=== PATIENT | male | born 1950 | race Caucasian/White ===

== ENCOUNTER 2017-06-08 09:49 | Emergency (ER) | payer MEDICARE, OTHER, SELFPAY ==
[2017-06-08 10:01] VITALS: BP 132/81; PULSE 86; RESP 20; TEMP 36.4; O2SAT 97; BMI 41.8
--- NOTE | 2017-06-08 10:09 | HMH.EDUTC ---
[facility] [place] Clinical Impression: Upper respiratory virus Disposition: Home, Self-Care Condition on Discharge: Good Instructions: DI for Viral Upper Respiratory Infection -- Adult Additional Instructions: * No sign of bacterial infection. Likely viral. Virus can take 7-14 days to run their course * Monitor Temp. Fever would not be expected. Follow up if occurs. * Encourage fluids, water, gatorade, powerade, pedialyte if infant/toddler/child * warm salt water gargles * warm fluids * sore throat lozenges * sleep elevated * humidifier/vaporizer * Bromfed may cause drowsiness. Know how it effects you (or your child) before driving, caring for small children, or sending your child to school. No other antihistamines/allergy medications while taking bromfed. Keep an eye on your blood pressure and if becomes elevated, stop medication and follow up. Prescriptions: Brompheniramine/Pseudoephed/Dm [Bromfed DM Cough Syrup 5mL] 10 ml PO QID PRN #240 ml PRN Reason: Cough Referrals: Provider,Referral, MD [Primary Care Provider] - (Follow up with primary care or if closed, [facility], IMMEDIATELY for new or worsening symptoms OR no noticeable improvement over the next 72 hours. 911 for difficulty breathing or swallowing. ) Time of Disposition: 10:32 Medical Decision Making Vital Signs: 06/08/17 10:01 Temperature 97.5 F L Temperature Source Temporal Artery Scan Pulse Rate [Right Radial] 86 Respiratory Rate 20 Blood Pressure [Right Arm] 132/81 Blood Pressure Mean [Right Arm] 98 02 Sat by Pulse Oximetry 97 Oxygen Delivery Method Room Air - Lab Data Lab results reviewed: Yes: I reviewed the patient's lab results. Lab Results 06/08/17 10:14: Influenza Type A Ag Negative, Influenza Type B Ag Negative - Aroldo Inquiry Pt receiving controlled substance: No [facility] [place] - General Stated complaint: cold Time Seen by Provider: 06/08/17 09:55 Mode of Arrival: Family Vehicle Source of Information: Patient Limitations: No Limitations Description of Symptoms (Recalled from Triage Doc. by RN): pt c/o cough and chest congestion for 3 days. HEENT Symptoms (Recalled from RN notes): No Resp Symptoms (Recalled from RN notes): Yes (cough chest congestion) Skin Symptoms (Recalled from RN notes): No MS Symptoms (Recalled from RN notes): No Functional Status (Recalled from RN notes): na - History of Present Illness Provider Complaint: c/o cough. Wants to rule out flu due to grandchild. 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 Started Saturday, 5 days ago with scratchy throat. Thought he might be trying to get right ear infection but that resolved too . Moved to tickle in throat 2 days ago that is causing cough. Denies chest congestion, SOA. reports wheezing that started last night but then once discussed, he said wasn't actually wheezing and more just a deep cough occasionally. not very often at all. nothing like a chest cold or pneumonia. I have had those before and this is all up here, not my chest . Declined CXR when suggested. Primarily here to rule out flu. OTC cough syrup hasn't helped. Home meds amlodipine, benazepril, trim/hctz, allopurinol, simvastatin, ASA, K+ - Related Data Previous Rx's Medication Instructions Recorded Brompheniramine/Pseudoephed/Dm 10 ml PO QID PRN #240 ml 06/08/17 [Bromfed DM Cough Syrup 5mL] Allergies Allergy/AdvReac Type Severity Reaction Status Date / Time Penicillins Allergy Verified 06/08/17 10:05 PCN (PENICILLIN) AdvReac Unknown [id number] Uncoded 03/26/17 15:03 OUT 40 YRS AGO. WAS SNEEZING.-ANCEF OK - Worker's Comp Is this a Worker's Comp case?: No [facility] History I have reviewed the patient's past medical history: Yes Medical History: Reports:: Hypertension Denies:: Asthma, Cancer, Chronic Obstructive Pulmonary Disease (COPD), Diabetes Mellitus Type 1, Diabetes Mellitus Type 2, MRSA Comme
--- NOTE | 2017-06-08 10:13 | ED_ITS ---
[facility] [place]ression: Upper respiratory virus Disposition: Home, Self-Care Condition on Discharge: Good Instructions: DI for Viral Upper Respiratory Infection -- Adult Additional Instructions: * No sign of bacterial infection. Likely viral. Virus can take 7-14 days to run their course * Monitor Temp. Fever would not be expected. Follow up if occurs. * Encourage fluids, water, gatorade, powerade, pedialyte if infant/toddler/ child * warm salt water gargles * warm fluids * sore throat lozenges * sleep elevated * humidifier/vaporizer * Bromfed may cause drowsiness. Know how it effects you (or your child) before driving, caring for small children, or sending your child to school. No other antihistamines/allergy medications while taking bromfed. Keep an eye on your blood pressure and if becomes elevated, stop medication and follow up. Prescriptions: Brompheniramine/Pseudoephed/Dm [Bromfed DM Cough Syrup 5mL] 10 ml PO QID PRN # 240 ml PRN Reason: Cough Referrals: Provider,Referral, MD [Primary Care Provider] - (Follow up with primary care or if closed, [facility], IMMEDIATELY for new or worsening symptoms OR no noticeable improvement over the next 72 hours. 911 for difficulty breathing or swallowing. ) Time of Disposition: 10:32 Medical Decision Making Vital Signs: 06/08/17 10:01 Temperature 97.5 F L Temperature Source Temporal Artery Scan Pulse Rate [Right Radial] 86 Respiratory Rate 20 Blood Pressure [Right Arm] 132/81 Blood Pressure Mean [Right Arm] 98 02 Sat by Pulse Oximetry 97 Oxygen Delivery Method Room Air - Lab Data Lab results reviewed: Yes: I reviewed the patient's lab results. Lab Results 06/08/17 10:14: Influenza Type A Ag Negative, Influenza Type B Ag Negative - Aroldo Inquiry Pt receiving controlled substance: No [facility] [place] - General Stated complaint: cold Time Seen by Provider: 06/08/17 09:55 Mode of Arrival: Family Vehicle Source of Information: Patient Limitations: No Limitations Description of Symptoms (Recalled from Triage Doc. by RN): pt c/o cough and chest congestion for 3 days. HEENT Symptoms (Recalled from RN notes): No Resp Symptoms (Recalled from RN notes): Yes (cough chest congestion) Skin Symptoms (Recalled from RN notes): No MS Symptoms (Recalled from RN notes): No Functional Status (Recalled from RN notes): na - History of Present Illness Provider Complaint: c/o cough. Wants to rule out flu due to grandchild. 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 Started Saturday, 5 days ago with scratchy throat. Thought he might be trying to get right ear infection but that resolved too . Moved to tickle in throat 2 days ago that is causing cough. Denies chest congestion, SOA. reports wheezing that started last night but then once discussed, he said wasn't actually wheezing and more just a deep cough occasionally. not very often at all. nothing like a chest cold or pneumonia. I have had those before and this is all up here, not my chest . Declined CXR when suggested. Primarily here to rule out flu. OTC cough syrup hasn't helped. Home meds amlodipine, benazepril, trim/hctz, allopurinol, simvastatin, ASA, K+ - Related Data Previous Rx's Medication Instructions Recorded Brompheniramine/Pseudoephed/Dm 10 ml PO QID PRN #240 ml 06/08/17 [Bromfed DM Cough Syrup 5mL] Allergies Allergy/AdvReac Type Severity R
[2017-06-08 10:20] LABS: UTC Influenza A Antigen Negative (Negative); UTC Influenza B Antigen Negative (Negative)
[2017-06-08 10:35] VITALS: BP 130/79; PULSE 84; RESP 18; TEMP 36.4; O2SAT 98
== END 2017-06-08 10:36 | disposition home or self-care (01) ==
PROVIDERS: Emergency Provider Nurse Practitioner Family
DX: J06.9 Acute upper respiratory infection, unspecified (principal); I10 Essential (primary) hypertension; Z88.0 Allergy status to penicillin; Z96.651 Presence of right artificial knee joint
CPT/HCPCS: G0463; 87804; 99202

== ENCOUNTER → 2018-11-25 15:06 | Outpatient (POV) | payer MEDICARE, OTHER, SELFPAY | PROVIDERS: Visit Provider Dermatology | DX: Z00.00 Encounter for general adult medical examination without abnormal findings (principal) ==

== ENCOUNTER → 2020-05-16 07:07 | Outpatient (CLI) | payer MEDICARE, OTHER, SELFPAY ==
[2020-05-16 08:10] LABS: Coronavirus 19 IgG Antibody Negative (Negative); Coronavirus 19 IgM Antibody Negative (Negative)
== END ==
PROVIDERS: Visit Provider Surgery
DX: Z01.812 Encounter for preprocedural laboratory examination (principal); Z20.822 Contact with and (suspected) exposure to COVID-19; Z12.11 Encounter for screening for malignant neoplasm of colon
CPT/HCPCS: 36415; 86328

== ENCOUNTER 2020-05-17 07:38 | Day surgery (SDC) | payer MEDICARE, OTHER, SELFPAY ==
[2020-05-12 13:44] VITALS: BMI 44.1
[2020-05-17 07:51] VITALS: BP 145/75; PULSE 88; RESP 16; TEMP 36.3; O2SAT 100
[2020-05-17 08:11] VITALS: O2SAT 97
--- NOTE | 2020-05-17 08:39 | HMH.ANESCL ---
[facility] Anesthesia Checklist - Patient Identification Patient Identification: Arm Band - Structural Data Admitted From: Home Planned Operative Procedure/s: colonoscopy Consent for Planned Operative Procedure(s) Verified: Yes Verified Documents: Surgical Consent, History and Physical - NPO Status Verified Time NPO: 00:00 - Additional verifications Anesthesia Reactions: No - Airway Assessment C-Spine Mobility Assessed: Yes (mp3) TMJ Mobility Assessed: Yes Dentition: Good Dentition - Neurological Assessment Level of Consciousness: Awake, Alert - Anesthesia Plan Anesthesia Risk discussed: Yes Anesthesia Plan: Verified ASA Class: III Anesthesia Type: MAC [facility] History I have reviewed the patient's past medical history: Yes Medical History: Reports:: Cancer (basal cell scalp), Hyperlipidemia, Hypertension Denies:: Asthma, Chronic Obstructive Pulmonary Disease (COPD), Diabetes Mellitus Type 1, Diabetes Mellitus Type 2, Internal Pacemaker, Lung Disease, MRSA, Seizures *Have you ever received a pneumonia vaccine?: Yes *Have you received a flu vaccine this season?: Yes Other Medical History: Reports: Other (christiano-cpap hs) Anesthesia experience/problems:: nac Other Surgeries: Yes: Colonoscopy, Other. No: Pacemaker Amputation: No - *Social History Last grade of school completed: 11th or 12th Smoking Status: Never smoker Alcohol Intake: never Substance Use Type: denies use *Occupational Status:: retired Housing: house Household Members: spouse *Travel in the last 8 weeks: None Family Hx:: Cancer, Heart Attack
[2020-05-17 08:55] VITALS: BP 92/52; PULSE 64; RESP 18; TEMP 36.1; O2SAT 90
--- NOTE | 2020-05-17 08:57 | HMH.SCOPE ---
- Procedure: Date: 05/17/20 Patient Date of :: 1950 Procedure Performed:: Total colonoscopy with polypectomy Indications:: Patient is a 70-year-old male with BMI of 44 whose primary care provider is Dr. Dequan Roe. He presents to schedule follow-up colonoscopy. He has undergone several colonoscopies in the past. He had colonoscopy in 2004 with numerous tubular adenomas removed, 2006 which was unremarkable, 2011 with 5 tubular adenomas removed, February 2014 at which time he had 12 tubular adenomas and in November 2017 at which time he had 8 tubular adenomas. I recommended a 2-year follow-up. He is doing well without any complaints. Performing Provider:: Saul Tuttle MD Referring Provider:: Dequan Roe MD Sedation:: MAC sedation Procedure:: Patient was taken to endoscopy procedure room. He was positioned in the lateral decubitus position. Adequate intravenous sedation was achieved with anesthesia titration of propofol. Digital examination was performed which was unremarkable. Variable stiffness Olympus colonoscope was inserted via the anus. It was advanced to the cecum with some minor difficulty due to floppiness of the sigmoid colon. Ileocecal valve and appendiceal orifice were identified. He did have a fair preparation with particulate liquid stool throughout the colon and a significant amount of undigested vegetable matter (peas). Thorough irrigation and suctioning was performed. Colonoscope was withdrawn through the colon with careful surveillance. There was a small adenomatous appearing polyp in the ascending colon removed with cold cutting snare. There is a small polyp in the transverse colon removed with cold snare. There is possible subtle polyp irregularity in the descending colon which was biopsied. There was a similar possible polyp characterizes a subtle irregularity in the sigmoid colon which was biopsied. Retroflexion within the rectum revealed no evidence of any pathologic internal hemorrhoids. Colonoscope was withdrawn. Findings:: Fair preparation Undigested vegetable matter Several small polyps as noted above Recommendations:: Pending the pathology and in light of suboptimal bowel preparation recommend repeat colonoscopy 2 to 3 years Complications:: None Estimated blood obtained (mL): 2
[2020-05-17 09:05] VITALS: BP 110/63; PULSE 64; RESP 18; O2SAT 91
[2020-05-17 09:15] VITALS: BP 126/72; PULSE 63; RESP 18; O2SAT 94
[2020-05-17 09:25] VITALS: BP 131/97; PULSE 62; RESP 18; O2SAT 97
== END 2020-05-17 09:25 | disposition home or self-care (01) ==
LOC: OUTP 07:40
PROVIDERS: PCP Internal Medicine; Visit Provider Surgery
PROC: 0DJD8ZZ Inspection of Lower Intestinal Tract, Via Natural or Artificial Opening Endoscopic (ICD-10-PCS; CPT 45380; principal; 2020-05-17 08:30)
DX: Z12.11 Encounter for screening for malignant neoplasm of colon (principal); K63.89 Other specified diseases of intestine; K63.5 Polyp of colon; Z86.010 Personal history of colon polyps; Z85.828 Personal history of other malignant neoplasm of skin; E78.5 Hyperlipidemia, unspecified; I10 Essential (primary) hypertension; G47.33 Obstructive sleep apnea (adult) (pediatric); Z82.3 Family history of stroke; Z80.9 Family history of malignant neoplasm, unspecified; Z79.82 Long term (current) use of aspirin; Z79.899 Other long term (current) drug therapy
CPT/HCPCS: 45380; 45385; 88305

== ENCOUNTER → 2020-10-24 10:39 | Outpatient (CLI) | payer MEDICARE, OTHER, SELFPAY | PROVIDERS: PCP Internal Medicine; Visit Provider Internal Medicine | DX: Z20.822 Contact with and (suspected) exposure to COVID-19 (principal); U07.1 COVID-19 | CPT/HCPCS: U0003 ==

== ENCOUNTER → 2021-06-09 13:26 | Outpatient (CLI) | payer MEDICARE, OTHER, SELFPAY ==
[2021-06-09 15:19] LABS: Basophils % 0.3 % (0.1-2.0); Eosinophils # 0.1 K/mm3 (0.0-0.4); Eosinophils % 1.2 % (0.1-12.0); Hematocrit 44.8 % (42.0-52.0); Hemoglobin 15.2 g/dL (14.1-18.0); Lymphocytes # 1.7 K/mm3 (0.7-4.5); Lymphocytes % 31.6 % (10-50); Mean Corpuscular HGB Conc 33.9 g/dL (31.8-35.4); Mean Corpuscular Hemoglobin 30.2 pg (27.0-31.2); Mean Corpuscular Volume 89.1 fl (80-94); Mean Platelet Volume 8.1 fl (7.4-10.4); Monocytes # 0.5 K/mm3 (0.1-1.0); Monocytes % 8.4 % (1.7-9.3); Neutrophils # 3.1 K/mm3 (1.8-7.8); Neutrophils % 58.4 % (37.0-80.0); Platelet Count 243 K/mm3 (142-424); Red Blood Count 5.02 M/mm3 (4.60-6.20); White Blood Count 5.3 K/mm3 (4.8-10.8)
[2021-06-09 15:32] LABS: Chloride 101 mmol/L (98-107); Potassium 3.9 mmoL/L (3.5-5.1); Sodium 137 mmol/L (136-145)
[2021-06-09 15:35] LABS: Alanine Aminotransferase 35 U/L (12-78); Albumin Level 4.2 g/dl (3.5-5.0); Albumin/Globulin Ratio 1.6 (1.1-1.8); Alkaline Phosphatase 96 U/L (38-126); Anion Gap 14.9 mEq/L (5-15); Aspartate Amino Transferase 40 U/L (17-59); Bilirubin,Total 1.2 mg/dl (0.2-1.3); Blood Urea Nitrogen 20 mg/dl (9-20); Carbon Dioxide 25 mmol/L (22.0-30.0); Cholesterol 142 mg/dl (140-200); Estimated Glomerular Filt Rate 66 ml/min (>60); GFR (African American) 80 ML/MIN (>60); Globulin 2.6 g/dL (1.3-3.2); Total Protein,Serum 6.8 g/dl (6.3-8.2); Triglycerides 91 mg/dl (30-150); VLDL Cholesterol 18 mg/dL (0-40)
[2021-06-09 15:36] LABS: Calcium 8.3 mg/dl (8.4-10.2); Chol/HDL Ratio 3.7 (1-3.5); Glucose 83 mg/dl (74-100); HDL Cholesterol 38 mg/dl (40-60)
[2021-06-09 15:47] LABS: Direct LDL Cholesterol 81.27 mg/dL (100-129)
[2021-06-09 16:32] LABS: Uric Acid 6.9 mg/dl (3.5-8.5)
[2021-06-09 17:04] LABS: Prostate Specific Ag Screen 2.6 ng/ml (0.0-4.0)
== END ==
PROVIDERS: PCP Internal Medicine; Visit Provider Internal Medicine
DX: E11.9 Type 2 diabetes mellitus without complications (principal); I10 Essential (primary) hypertension; I87.2 Venous insufficiency (chronic) (peripheral); E78.5 Hyperlipidemia, unspecified; M10.9 Gout, unspecified; Z12.5 Encounter for screening for malignant neoplasm of prostate
CPT/HCPCS: 80053; 80061; 84550; 85025; G0103

== ENCOUNTER → 2021-07-06 10:18 | Outpatient (CLI) | payer MEDICARE, OTHER, SELFPAY ==
--- NOTE | 2021-07-06 10:18 | MR_ITS ---
FINAL REPORT CLINICAL HISTORY: growth on inner thigh. growth on medial aspect of lt thigh xyrs. knee replacement. growth getting bigger. 26ml prohance given. FINDINGS: Multiplanar MR imaging of the left femur was performed with and without contrast. No fracture is identified. The musculature is intact. There are several enlarged left inguinal nodes measuring up to 25 mm which are nonspecific, favor reactive. There are postoperative changes from left knee arthroplasty. There is a presumed large subchondral cyst in the superior left acetabulum. Small joint effusion is identified. A marker was placed at the proximal medial aspect of the left thigh. At the level of the marker is superficial increased T2 signal which shows contrast enhancement and extends to the skin surface, favor edema/inflammation. Small bilateral scrotal hydroceles are identified. IMPRESSION: Findings favored to represent edema/inflammation at the area of interest. Small bilateral scrotal hydroceles. Reviewed, Interpreted and Dictated by Saul Dawson III, MD Transcribed by Eula Kasper Authenticated by Saul Dawson III, MD on 07/06/2021 01:48:32 PM [facility]
== END ==
PROVIDERS: PCP Internal Medicine; Visit Provider Surgery
DX: D17.9 Benign lipomatous neoplasm, unspecified (principal)
CPT/HCPCS: 73720; A9576

== ENCOUNTER → 2021-12-15 09:23 | Outpatient (CLI) | payer MEDICARE, OTHER, SELFPAY ==
[2021-12-15 17:13] LABS: Alanine Aminotransferase 38 U/L (12-78); Albumin Level 3.7 g/dl (3.5-5.0); Albumin/Globulin Ratio 1.5 (1.1-1.8); Alkaline Phosphatase 122 U/L (38-126); Anion Gap 13.1 mEq/L (5-15); Aspartate Amino Transferase 37 U/L (17-59); Bilirubin,Total 0.7 mg/dl (0.2-1.3); Blood Urea Nitrogen 17 mg/dl (9-20); Calcium 8.2 mg/dl (8.4-10.2); Carbon Dioxide 25 mmol/L (22.0-30.0); Chloride 105 mmol/L (98-107); Chol/HDL Ratio 3.5 (1-3.5); Cholesterol 132 mg/dl (140-200); Estimated Glomerular Filt Rate 66 ml/min (>60); GFR (African American) 80 ML/MIN (>60); Globulin 2.5 g/dL (1.3-3.2); Glucose 145 mg/dl (74-100); HDL Cholesterol 38 mg/dl (40-60); Potassium 4.1 mmoL/L (3.5-5.1); Sodium 139 mmol/L (136-145); Total Protein,Serum 6.2 g/dl (6.3-8.2); Triglycerides 116 mg/dl (30-150); Uric Acid 6.4 mg/dl (3.5-8.5); VLDL Cholesterol 23 mg/dL (0-40)
[2021-12-15 17:24] LABS: Direct LDL Cholesterol 72.54 mg/dL (100-129)
[2021-12-15 20:11] LABS: Hemoglobin A1C 7.3 % (4.0-6.0)
== END ==
PROVIDERS: PCP Internal Medicine; Visit Provider Internal Medicine
DX: I10 Essential (primary) hypertension (principal); M10.9 Gout, unspecified; E78.5 Hyperlipidemia, unspecified; I87.2 Venous insufficiency (chronic) (peripheral); Z79.899 Other long term (current) drug therapy
CPT/HCPCS: 80053; 80061; 83036; 84550

== ENCOUNTER → 2022-06-13 12:29 | Outpatient (CLI) | payer MEDICARE, OTHER, SELFPAY ==
[2022-06-13 13:22] LABS: Basophils % 0.5 % (0.1-2.0); Eosinophils # 0.1 K/mm3 (0.0-0.4); Hematocrit 41.1 % (42.0-52.0); Hemoglobin 14.2 g/dL (14.1-18.0); Lymphocytes # 1.4 K/mm3 (0.7-4.5); Lymphocytes % 22.8 % (10-50); Mean Corpuscular HGB Conc 34.6 g/dL (31.8-35.4); Mean Corpuscular Volume 89.6 fl (80-94); Mean Platelet Volume 9.1 fl (7.4-10.4); Monocytes # 0.5 K/mm3 (0.1-1.0); Monocytes % 7.5 % (1.7-9.3); Neutrophils % 67.2 % (37.0-80.0); Platelet Count 240 K/mm3 (142-424); Red Blood Count 4.59 M/mm3 (4.60-6.20)
[2022-06-13 13:37] LABS: Creatinine,Urine Random 35 mg/dL (Not Estab.)
[2022-06-13 13:46] LABS: Microalbumin/Creatinine Ratio 42.8
[2022-06-13 13:55] LABS: Chloride 103 mmol/L (98-107); Sodium 137 mmol/L (136-145)
[2022-06-13 13:57] LABS: Blood Urea Nitrogen 18 mg/dl (9-20); Estimated Glomerular Filt Rate 73 ml/min (>60); GFR (African American) 89 ML/MIN (>60)
[2022-06-13 13:58] LABS: Albumin Level 3.8 g/dl (3.5-5.0); Albumin/Globulin Ratio 1.4 (1.1-1.8); Alkaline Phosphatase 109 U/L (38-126); Bilirubin,Total 1.1 mg/dl (0.2-1.3); Calcium 8.2 mg/dl (8.4-10.2); Cholesterol 125 mg/dl (140-200); Globulin 2.7 g/dL (1.3-3.2); Glucose 192 mg/dl (74-100); Total Protein,Serum 6.5 g/dl (6.3-8.2); Triglycerides 141 mg/dl (30-150); VLDL Cholesterol 28 mg/dL (0-40)
[2022-06-13 13:59] LABS: Chol/HDL Ratio 3.5 (1-3.5); HDL Cholesterol 36 mg/dl (40-60)
[2022-06-13 14:09] LABS: Direct LDL Cholesterol 73.94 mg/dL (100-129)
[2022-06-13 16:42] LABS: Alanine Aminotransferase 39 U/L (12-78); Aspartate Amino Transferase 39 U/L (17-59); Carbon Dioxide 24 mmol/L (22.0-30.0)
[2022-06-13 17:14] LABS: Prostate Specific Ag Screen 5.1 ng/ml (0.0-4.0)
[2022-06-13 21:44] LABS: Hemoglobin A1C 8.9 % (4.0-6.0)
== END ==
PROVIDERS: PCP Internal Medicine; Visit Provider Internal Medicine
DX: E11.9 Type 2 diabetes mellitus without complications (principal); I10 Essential (primary) hypertension; I87.2 Venous insufficiency (chronic) (peripheral); E78.5 Hyperlipidemia, unspecified; Z12.5 Encounter for screening for malignant neoplasm of prostate; G47.33 Obstructive sleep apnea (adult) (pediatric)
CPT/HCPCS: 80053; 80061; 82043; 82570; 83036; 85025; G0103

== ENCOUNTER → 2022-12-14 12:56 | Outpatient (CLI) | payer MEDICARE, OTHER, SELFPAY ==
[2022-12-14 16:29] LABS: Prostate Specific Ag Screen 2.7 ng/ml (0.0-4.0)
== END ==
PROVIDERS: PCP Internal Medicine; Visit Provider Internal Medicine
DX: E11.9 Type 2 diabetes mellitus without complications (principal); Z12.5 Encounter for screening for malignant neoplasm of prostate; I10 Essential (primary) hypertension; M10.9 Gout, unspecified; R97.20 Elevated prostate specific antigen [PSA]; I87.2 Venous insufficiency (chronic) (peripheral)
CPT/HCPCS: 83036; G0103

== ENCOUNTER → 2023-01-16 08:15 | Outpatient (CLI) | payer MEDICARE, OTHER, SELFPAY ==
--- NOTE | 2023-01-16 08:27 | MR_ITS ---
APPROVED REPORT Area Forester: CLINICAL INDICATION TECHNIQUE Image Acquisition: Cardiac magnetic resonance (CMR) was performed on Siemens MRI 1.5T scanner. A set of three-plane, low-resolution, large [id number] localizers were initially acquired. Then axial, coronal, and sagittal TrueFISP, and axial HASTE images were obtained. These were followed by gated TrueFISP breathold cinematic sequences obtained in the short axis with 8 mm slices and 2 mm gaps, 2-chamber (vertical long axis), 3-chamber, 4-chamber (horizontal long axis). A bolus of contrast was injected intravenously with first-pass sequences obtained in the short axis and four-chamber planes. After approximately 10 minutes, a TI agronomy specialist sequence was performed to determine the optimal TI time. Using the optimized TI time, delayed contrast enhancement segmented inversion???recovery TurboFLASH sequences were obtained in the short axis, 2-chamber, 3-chamber, and 4-chamber projections. 2D-velocity phase mapping was performed. Functional parameters were calculated by offline analysis on an independent workstation ([employer], [employer]). Contrast: ProHance??? (Gadoteridol) FINDINGS See below for the full quantitative analysis report. MORPHOLOGY AND FUNCTION Left ventricle: The left ventricle is normal in size. The indexed left ventricular end-diastolic volume (LVEDVi) is 68.2 ml/m2 (reference range 57-105 ml/m2 in males, 56-96 ml/m2 in females). Low-normal left ventricular systolic function is present. There is normal wall thickness. There are no regional wall motion abnormalities noted. LVEF is calculated at 50.5% (reference range 57-77%). Right ventricle: The right ventricle is normal in size. The indexed right ventricular end-diastolic volume (RVEDVi) is 95.5 ml/m2 (reference range 61-121 ml/m2 in males, 48-112 ml/m2 in females). Moderately reduced right ventricular systolic function is present. RVEF is calculated at 35.3 % (reference range 52-72% in males, 51-71% in females). Atria: The left atrium is normal in size. The maximum indexed left atrial volume is 29.8 ml/m2 (reference range 26-52 ml/m2 in males, 27-53 ml/m2 in females). The right atrium is normal in size. The maximum indexed right atrial volume is 42.7 ml/m2 (reference range 18-90 ml/m2). Aorta: The diameter of the aortic annulus is normal, measuring 28 mm (coronal view reference range 21-30 mm in males, 19-27 mm in females). The diameter of the aortic sinus is mildly increased, measuring 44 mm (coronal view reference range 25-42 mm in males, 24-36 mm in females). The diameter of the sinotubular junction is moderately increased, measuring 37 mm (coronal view reference range 18-32 mm in males, 18-28 mm in females). The diameter of the ascending aorta is mildly increased, measuring 40 mm. Main pulmonary artery: The main pulmonary artery diameter is normal. Pericardium: The pericardial thickness is normal. The pericardial thickness measures 1.3 cm (reference range < 4 mm). There is no pericardial effusion. VALVES The valvular morphologies in the visualized sequences appear normal. There is no significant valvular stenosis or regurgitation of the mitral, aortic, tricuspid, or pulmonic valve. Systolic anterior motion of the mitral valve is not visualized. Ratio of pulmonary to systemic flow, Qp:Qs ratio cannot be quantified due to absence of pulmonary flow assessment. TISSUE CHARACTERIZATION Resting Perfusion: Normal myocardial blood flow at rest. No evidence of resting hypoperfusion. Myocardial Fibrosis and/or edema: There is inadequate myocardial nulling during study processing to evaluate for late gadolinium enhancement. Further assessment cannot be made. OTHER No other significant findings ar
== END ==
PROVIDERS: PCP Internal Medicine
DX: J06.9 Acute upper respiratory infection, unspecified (principal)

== ENCOUNTER 2023-06-14 14:36 | Outpatient (CLI) | payer MEDICARE, OTHER, SELFPAY ==
[2023-06-14 15:13] LABS: Basophils % 0.5 % (0.1-2.0); Eosinophils # 0.1 K/mm3 (0.0-0.4); Hematocrit 45.3 % (42.0-52.0); Hemoglobin 14.8 g/dL (14.1-18.0); Lymphocytes # 1.5 K/mm3 (0.7-4.5); Lymphocytes % 30.3 % (10-50); Mean Corpuscular HGB Conc 32.7 g/dL (31.8-35.4); Mean Corpuscular Hemoglobin 31.9 pg (27.0-31.2); Mean Corpuscular Volume 97.4 fl (80-94); Monocytes # 0.5 K/mm3 (0.1-1.0); Monocytes % 10.1 % (1.7-9.3); Neutrophils # 2.8 K/mm3 (1.8-7.8); Neutrophils % 57.1 % (37.0-80.0); Platelet Count 181 K/mm3 (142-424); Red Blood Count 4.65 M/mm3 (4.60-6.20); Red Cell Distribution Width 15.7 % (11.5-17.5); White Blood Count 4.9 K/mm3 (4.8-10.8)
[2023-06-14 15:44] LABS: Creatinine,Urine Random 27 mg/dL (Not Estab.); Microalbumin < 6.000 mg/L (0-16.7)
[2023-06-14 16:02] LABS: Alanine Aminotransferase 36 U/L (12-78); Albumin/Globulin Ratio 1.7 (1.1-1.8); Alkaline Phosphatase 113 U/L (38-126); Anion Gap 11.6 mEq/L (5-15); Aspartate Amino Transferase 40 U/L (17-59); Bilirubin,Total 1.1 mg/dl (0.2-1.3); Blood Urea Nitrogen 18 mg/dl (9-20); Calcium 8.5 mg/dl (8.4-10.2); Carbon Dioxide 26 mmol/L (22.0-30.0); Chloride 105 mmol/L (98-107); Chol/HDL Ratio 4.1 (1-3.5); Cholesterol 131 mg/dl (140-200); Estimated Glomerular Filt Rate 73 ml/min (>60); GFR (African American) 89 ML/MIN (>60); Globulin 2.4 g/dL (1.3-3.2); Glucose 135 mg/dl (74-100); HDL Cholesterol 32 mg/dl (40-60); Potassium 3.6 mmoL/L (3.5-5.1); Sodium 139 mmol/L (136-145); Total Protein,Serum 6.4 g/dl (6.3-8.2); Triglycerides 127 mg/dl (30-150); Uric Acid 5.9 mg/dl (3.5-8.5); VLDL Cholesterol 25 mg/dL (0-40)
[2023-06-14 16:13] LABS: Direct LDL Cholesterol 73.51 mg/dL (100-129)
[2023-06-14 16:17] LABS: Hemoglobin A1C 8.4 % (4.0-6.0)
== END 2023-06-14 23:59 ==
LOC: LAB.DROPOF 14:37
PROVIDERS: PCP Internal Medicine; Visit Provider Internal Medicine
DX: E11.9 Type 2 diabetes mellitus without complications (principal); I10 Essential (primary) hypertension; M10.9 Gout, unspecified; E78.5 Hyperlipidemia, unspecified; G47.33 Obstructive sleep apnea (adult) (pediatric); N40.1 Benign prostatic hyperplasia with lower urinary tract symptoms; I87.2 Venous insufficiency (chronic) (peripheral)
CPT/HCPCS: 80053; 80061; 82043; 82570; 83036; 84550; 85025

== ENCOUNTER 2023-06-28 07:22 | Day surgery (SDC) | payer MEDICARE, OTHER, SELFPAY ==
[2023-06-26 13:47] VITALS: BMI 43.9
[2023-06-28 07:43] VITALS: BP 127/69; PULSE 80; RESP 18; TEMP 36.1; O2SAT 94
[2023-06-28] MEDS: LACTATED RINGERS 1000ML 1,000 ML 25 ML IV (07:50)
--- NOTE | 2023-06-28 08:07 | HMH.SCOPE ---
Procedure: Date: 06/28/23 Patient Date of :: 1950 Procedure Performed:: Total colonoscopy to terminal ileum with multiple polypectomy Indications:: Patient is a 73-year-old male. He underwent colonoscopy in 2004 and had numerous tubular adenomas. He subsequently had colonoscopy in 2006 and then in 2011 at which time he had 5 tubular adenomas. Repeat colonoscopy 2 years later in 2013 revealed 12 tubular adenomas. Colonoscopy 2018 revealed 8 tubular adenomas. Last colonoscopy performed on 05/17/2020 revealed a couple of tubular adenomas and a suboptimal preparation. Performing Provider:: Saul Tuttle MD Referring Provider:: Dequan Roe MD Sedation:: MAC sedation Procedure:: Patient history was obtained and appropriate physical examination was performed. Patient's medications and allergies were reviewed. Informed consent was obtained after explaining the benefits, alternatives, and risks of the procedure including, but not limited to, bleeding, perforation, missed lesions, and adverse reaction to anesthesia medications. Patient was transported to endoscopy procedure room. Patient was connected to monitoring devices. Throughout the procedure the patient's blood pressure, pulse, and oxygen saturations were monitored continuously. Patient identification and planned procedure were verified by the staff. Patient was positioned in lateral decubitus position. Digital anorectal exam was performed. Variable stiffness Olympus colonoscope was inserted and advanced under direct visualization to the cecum. Adequacy of the colonic preparation was noted. The colonoscope was advanced a short distance into the terminal ileum. The colonoscope was then slowly withdrawn while carefully examining the color, texture, anatomy, and integrity of the mucosoa circumferentially. Within the rectum retroflexion was performed. Colonoscope was then withdrawn. . Colonoscope was advanced to the terminal ileum. There was particulate liquid stool throughout the colon and high-volume irrigation and suctioning was performed. In the ascending colon there was a tiny diminutive polyp removed with biopsy forceps. In the proximal transverse colon there were a couple of small diminutive polyps removed with biopsy forceps. There was some minor oozing from the polypectomy site and Hemoclip was deployed for assurance of hemostasis. In the proximal sigmoid colon there was somewhat of a hyperplastic appearing polyp removed with cold snare. He had some mild sigmoid diverticulosis. At the rectosigmoid region there was an adenomatous appearing polyp removed with cold snare. . Findings:: Polyps as noted above Sigmoid diverticulosis Recommendations:: Repeat colonoscopy pending pathology. Likely 3 years given prior history and polyps Complications:: None immediately apparent Estimated blood obtained (mL): 3 Colonoscopy Component Colonoscopy Component Was a colonoscopy performed during today's procedure?: Yes Recommended follow up colonoscopy of at least 10 years?: No If no, follow up colonoscopy recommended in ___ years?: 3 Reason for not recommending >/= 10 yr follow-up interval?: See above
--- NOTE | 2023-06-28 08:15 | P.PNANES_ITS ---
[facility] Disclaimer: The information contained in this section may have been updated after the patient was seen, as this information can be updated by other users. Medical History Sleep apnea History of COVID-19 Hyperlipidemia Hypertension Skin cancer Surgical History Hx of total knee replacement Family History Other Cancer Heart attack Social History (Updated 06/28/23 @ 07:49 by Juliane Coffman RN) Smoking Status: Never smoker alcohol intake: never substance use type: denies use current occupational status: retired Travel in the last 8 weeks: None household members: spouse housing: house caffeine: Yes [facility] Anesthesia Checklist Patient Identification Patient Identification: Arm Band Structural Data Admitted From: Home Planned Operative Procedure/s: Colonoscopy Consent for Planned Operative Procedure(s) Verified: Yes Verified Documents: Surgical Consent and History and Physical NPO Status Verified Time NPO: 00:00 Additional verifications Anesthesia Reactions: No Airway Assessment Mallampati Score:: Class III C-Spine Mobility Assessed: Yes TMJ Mobility Assessed: Yes Dentition: Good Dentition Neurological Assessment Level of Consciousness: Awake and Alert Anesthesia Plan Anesthesia Risk discussed: Yes Anesthesia Plan: Verified ASA Class: III Anesthesia Type: MAC
[2023-06-28 08:21] VITALS: O2SAT 979
[2023-06-28 08:57] VITALS: BP 87/54; PULSE 63; RESP 17; TEMP 36.9; O2SAT 90
[2023-06-28 09:07] VITALS: BP 92/55; PULSE 60; RESP 17; O2SAT 94
[2023-06-28 09:17] VITALS: BP 91/53; PULSE 69; RESP 18; O2SAT 94
[2023-06-28 09:28] VITALS: BP 102/59; PULSE 68; RESP 18; O2SAT 95
== END 2023-06-28 09:29 | disposition home or self-care (01) ==
PROVIDERS: PCP Internal Medicine; Visit Provider Surgery
PROC: 0DJD8ZZ Inspection of Lower Intestinal Tract, Via Natural or Artificial Opening Endoscopic (ICD-10-PCS; CPT 45385; principal; 2023-06-28 08:30)
DX: Z12.11 Encounter for screening for malignant neoplasm of colon (principal); Z86.010 Personal history of colon polyps; K57.92 Diverticulitis of intestine, part unspecified, without perforation or abscess without bleeding; D12.2 Benign neoplasm of ascending colon; D12.3 Benign neoplasm of transverse colon; K63.5 Polyp of colon; D12.5 Benign neoplasm of sigmoid colon
CPT/HCPCS: 45380; 45385; 88305; J2704

== ENCOUNTER 2023-12-18 09:20 | Outpatient (CLI) | payer MEDICARE, OTHER, SELFPAY ==
[2023-12-18 17:39] LABS: Creatinine,Urine Random 31 mg/dL (Not Estab.); Microalbumin < 6.000 mg/L (0-16.7)
[2023-12-18 17:52] LABS: Hemoglobin A1C 6.5 % (4.0-6.0)
[2023-12-18 18:18] LABS: Alanine Aminotransferase 31 U/L (12-78); Albumin Level 3.7 g/dl (3.5-5.0); Albumin/Globulin Ratio 1.2 (1.1-1.8); Alkaline Phosphatase 88 U/L (38-126); Aspartate Amino Transferase 36 U/L (17-59); Blood Urea Nitrogen 23 mg/dl (9-20); Calcium 8.4 mg/dl (8.4-10.2); Carbon Dioxide 24 mmol/L (22.0-30.0); Chloride 105 mmol/L (98-107); Chol/HDL Ratio 3.9 (1-3.5); Cholesterol 128 mg/dl (140-200); Estimated Glomerular Filt Rate 83 ml/min (>60); GFR (African American) 100 ML/MIN (>60); Glucose 122 mg/dl (74-100); HDL Cholesterol 33 mg/dl (40-60); Sodium 139 mmol/L (136-145); Total Protein,Serum 6.7 g/dl (6.3-8.2); Triglycerides 111 mg/dl (30-150); Uric Acid 6.2 mg/dl (3.5-8.5); VLDL Cholesterol 22 mg/dL (0-40)
[2023-12-18 18:29] LABS: Direct LDL Cholesterol 70.97 mg/dL (100-129)
[2023-12-18 18:48] LABS: Prostate Specific Ag Screen 4.1 ng/ml (0.0-4.0)
== END 2023-12-18 23:59 | disposition home or self-care (01) ==
LOC: LAB.DROPOF 12-19 09:39
PROVIDERS: PCP Internal Medicine; Visit Provider Internal Medicine
DX: M10.9 Gout, unspecified (principal); I10 Essential (primary) hypertension; E11.9 Type 2 diabetes mellitus without complications; E78.5 Hyperlipidemia, unspecified; Z12.5 Encounter for screening for malignant neoplasm of prostate
CPT/HCPCS: 80053; 80061; 82043; 82570; 83036; 84550; G0103

== ENCOUNTER 2024-06-17 16:26 | Outpatient (CLI) | payer MEDICARE, OTHER, SELFPAY ==
[2024-06-17 16:44] LABS: Basophils % 0.6 % (0.1-2.0); Eosinophils # 0.1 K/mm3 (0.0-0.4); Eosinophils % 0.9 % (0.1-12.0); Hematocrit 44.3 % (42.0-52.0); Hemoglobin 14.7 g/dL (14.1-18.0); Lymphocytes # 1.4 K/mm3 (0.7-4.5); Lymphocytes % 27.1 % (10-50); Mean Corpuscular HGB Conc 33.2 g/dL (31.8-35.4); Mean Corpuscular Hemoglobin 30.1 pg (27.0-31.2); Mean Corpuscular Volume 90.6 fl (80-94); Mean Platelet Volume 10.1 fl (7.4-10.4); Monocytes # 0.6 K/mm3 (0.1-1.0); Monocytes % 10.6 % (1.7-9.3); Neutrophils # 3.2 K/mm3 (1.8-7.8); Neutrophils % 60.6 % (37.0-80.0); Platelet Count 206 K/mm3 (142-424); Red Blood Count 4.89 M/mm3 (4.60-6.20); Red Cell Distribution Width 14.7 % (11.5-17.5); White Blood Count 5.3 K/mm3 (4.8-10.8)
[2024-06-17 16:55] LABS: Albumin Level 4.3 g/dl (3.5-5.0); Chloride 100 mmol/L (98-107); Potassium 3.7 mmoL/L (3.5-5.1); Sodium 136 mmol/L (136-145)
[2024-06-17 16:57] LABS: Alanine Aminotransferase 38 U/L (12-78); Anion Gap 13.7 mEq/L (5-15); Aspartate Amino Transferase 35 U/L (17-59); Blood Urea Nitrogen 19 mg/dl (9-20); Carbon Dioxide 26 mmol/L (22.0-30.0); Estimated Glomerular Filt Rate 65 ml/min (>60); GFR (African American) 79 ML/MIN (>60)
[2024-06-17 16:58] LABS: Albumin/Globulin Ratio 1.9 (1.1-1.8); Alkaline Phosphatase 116 U/L (38-126); Bilirubin,Total 1.3 mg/dl (0.2-1.3); Calcium 9.2 mg/dl (8.4-10.2); Chol/HDL Ratio 3.3 (1-3.5); Cholesterol 137 mg/dl (140-200); Globulin 2.3 g/dL (1.3-3.2); Glucose 143 mg/dl (74-100); HDL Cholesterol 41 mg/dl (40-60); Total Protein,Serum 6.6 g/dl (6.3-8.2); Triglycerides 142 mg/dl (30-150); VLDL Cholesterol 28 mg/dL (0-40)
[2024-06-17 17:09] LABS: Direct LDL Cholesterol 68.82 mg/dL (100-129)
[2024-06-17 17:57] LABS: Hemoglobin A1C 7.3 % (4.0-6.0)
[2024-06-17 19:10] LABS: Prostate Specific Ag, Diagnost 3.35 ng/ml (0.0-4.0)
== END 2024-06-17 23:59 | disposition home or self-care (01) ==
LOC: LAB.DROPOF 16:27
PROVIDERS: PCP Internal Medicine; Visit Provider Internal Medicine
DX: E11.9 Type 2 diabetes mellitus without complications (principal); E78.5 Hyperlipidemia, unspecified; I10 Essential (primary) hypertension; M10.9 Gout, unspecified; R97.20 Elevated prostate specific antigen [PSA]
CPT/HCPCS: 36415; 80053; 80061; 83036; 84153; 84550; 85025

== ENCOUNTER 2024-12-21 09:10 | Outpatient (CLI) | payer MEDICARE, OTHER, SELFPAY ==
[2024-12-21 14:19] LABS: Hemoglobin A1C 6.3 % (4.0-6.0)
[2024-12-21 14:40] LABS: Alanine Aminotransferase 29 U/L (12-78); Albumin Level 4.1 g/dl (3.5-5.0); Albumin/Globulin Ratio 1.6 (1.1-1.8); Alkaline Phosphatase 84 U/L (38-126); Anion Gap 13.1 mEq/L (5-15); Aspartate Amino Transferase 31 U/L (17-59); Bilirubin,Total 1.1 mg/dl (0.2-1.3); Blood Urea Nitrogen 21 mg/dl (9-20); Calcium 8.5 mg/dl (8.4-10.2); Carbon Dioxide 25 mmol/L (22.0-30.0); Chloride 105 mmol/L (98-107); Cholesterol 134 mg/dl (140-200); Creatinine,Serum 1.10 mg/dl (0.66-1.25); Estimated Glomerular Filt Rate 65 ml/min (>60); GFR (African American) 79 ML/MIN (>60); Globulin 2.6 g/dL (1.3-3.2); Glucose 109 mg/dl (74-100); HDL Cholesterol 41 mg/dl (40-60); Potassium 4.1 mmoL/L (3.5-5.1); Sodium 139 mmol/L (136-145); Total Protein,Serum 6.7 g/dl (6.3-8.2); Triglycerides 97 mg/dl (30-150); Uric Acid 6.2 mg/dl (3.5-8.5)
[2024-12-21 15:10] LABS: Prostate Specific Ag, Diagnost 3.56 ng/ml (0.0-4.0)
== END 2024-12-21 23:59 ==
LOC: LAB.DROPOF 12-22 10:39
PROVIDERS: PCP Internal Medicine; Visit Provider Internal Medicine
DX: M10.9 Gout, unspecified (principal); I10 Essential (primary) hypertension; E78.5 Hyperlipidemia, unspecified; R97.20 Elevated prostate specific antigen [PSA]; E11.9 Type 2 diabetes mellitus without complications
CPT/HCPCS: 80053; 80061; 82043; 82570; 83036; 84153; 84550